=== PATIENT | female | born 1975 | race Caucasian/White ===

== ENCOUNTER 2024-12-08 15:54 | Emergency (ER) | payer SELFPAY ==
[2024-12-08 16:08] VITALS: BP 132/86
--- NOTE | 2024-12-08 16:11 | ED.GENMED ---
ED Provider Triage
<Erasmo Whiteside PA-C - Last Filed: 12/08/24 16:12>
-
Patient seen by provider in Triage?: Seen in Triage
Attestation: A medical screening examination has been initiated by a qualified medical provider. Based on the assessment performed at this time, it has been determined that an emergent medical condition may exist and the patient has been informed
that further medical evaluation and possible additional diagnostic testing may be needed.
HPI: 49-year-old otherwise healthy female presents with ongoing headache runny nose fatigue cough for the past 10 days. She also notes a fever at home. There has been some loose stools.
Patient appears well at triage vital signs are stable. Will start workup COVID and flu testing as well as CBC and CMP
GENERAL: Alert , in no apparent distress
EYE: No visual abnormalities.
NECK: Trachea midline
ENT: No visible abnormalities.
LUNGS: No acute respiratory distress
NEUROLOGICAL: Alert and oriented
SKIN: Skin intact. No visible changes.
MUSCULOSKELETAL: Moving extremities normally
PSYCH: Normal and appropriate interaction.
This is a medical evaluation conducted in person to initiate diagnostic evaluation and provide initial therapeutics. Please see further documentation by the treating clinician.
History of Present Illness
<Erasmo Whiteside PA-C - Last Filed: 12/08/24 16:12>
General
Chief Complaint: Headache
Time Seen by Provider: 12/08/24 20:29
<Saleem Seo MD - Last Filed: 12/09/24 03:00>
General
Source: patient
Exam Limitations: none
Nursing documentation reviewed up to this point in time: agreed with
History of Present Illness
History of Present Illness:
Patient presents to ED secondary to 5-day history of intermittent fever associated with diarrhea, intermittent cough, and head in addition, patient ache. Denies blurred vision. Denies dizziness. Denies nausea or vomiting. Denies rash. Denies
neck pain. Denies sick contact. Denies recent travel. Patient has been taking ibuprofen with improvement in symptoms. In addition, patient who has had recent nasal septum surgery in [place] 2 months ago, report noting cyst inside her nose, with
mild pain. Denies drainage. Denies nasal congestion.
Review of Systems
<Saleem Seo MD - Last Filed: 12/09/24 03:00>
Review of Systems
Allergies reviewed?: Yes
All Other Systems: ROS reviewed and negative except as documented in HPI and ROS
Constitutional: Reports fever
EENT: Reports no symptoms
Respiratory: Reports no symptoms
Cardiac: Reports no symptoms
ABD/GI: Reports diarrhea
: Reports no symptoms
Musculoskeletal: Reports no symptoms
Skin: Reports no symptoms
Neurological: Reports headache; Denies dizzy, weakness or numbness
Phy Exam
<Saleem Seo MD - Last Filed: 12/09/24 03:00>
Physical Exam
Physical Exam:
Physical Exam
General: no apparent distress, not acutely ill. afebrile
Head: nc/at. eomi
Neck: supple. no meningeal signs. normal posterior pharynx
Heart: s1/s2 regular rate and rhythm, no murmur. equal radial pulses.
Lungs: no acute respiratory distress. clear bilaterally
Abdomen: normal bowel sounds. not tender.
Neuro: alert and oriented x 3. no focal neurological deficits
Skin: no rash
Psychiatric: well kept. interactive and cooperative
Extremities: no edema. no calf tenderness.
Course
<Erasmo Whiteside PA-C - Last Filed: 12/08/24 16:12>
Orders/Labs/Results
Orders:
Orders
12/08/24 16:16
COVID-19 Antigen Urgent
Source: Nasal Swab
Complete Blood Count/With Diff Urgent
Comprehensive Metabolic Panel Urgent
Influenza A+B Rapid Molecular Urgent
MARLY Source: Nasal Swab
Specimen Description:
12/08/24 21:40
Ibuprofen [Motrin] 400 mg PO NOW STA
12/09/24 00:45
CT Head W/o Iv Contrast Urgent
Reason For Exam: headache
Abnormal Lab Results
12/08/24
16:16
RBC 4.03 L 10^6/uL
(4.20-5.40)
MCH 31.5 H pg
(27.0-31.0)
12/08/24 16:16
12/08/24 16:16
Vital Signs
Initial and Last Documented VS:
Initial Vital Signs
Temp Pulse Resp BP Pulse Ox
98.2 F 67 16 132/86 98
12/08/24 16:08 12/08/24 16:08 12/08/24 16:08 12/08/24 16:08 12/08/24 16:08
Last Documented Vital Signs
Temp Pulse Resp BP Pulse Ox
98.2 F 67 16 132/86 98
12/08/24 16:08 12/08/24 16:08 12/08/24 16:08 12/08/24 16:08 12/08/24 16:08
<Saleem Seo MD - Last Filed: 12/09/24 03:00>
Orders/Labs/Results
Orders:
Orders
12/08/24 16:16
COVID-19 Antigen Urgent
Source: Nasal Swab
Complete Blood Count/With Diff Urgent
Comprehensive Metabolic Panel Urgent
Influenza A+B Rapid Molecular Urgent
MARLY Source: Nasal Swab
Specimen Description:
12/08/24 21:40
Ibuprofen [Motrin] 400 mg PO NOW STA
12/09/24 00:45
CT Head W/o Iv Contrast Urgent
Reason For Exam: headache
Abnormal Lab Results
12/08/24
16:16
RBC 4.03 L 10^6/uL
(4.20-5.40)
MCH 31.5 H pg
(27.0-31.0)
12/08/24 16:16
12/08/24 16:16
Vital Signs
Initial and Last Documented VS:
Initial Vital Signs
Temp Pulse Resp BP Pulse Ox
98.2 F 67 16 132/86 98
12/08/24 16:08 12/08/24 16:08 12/08/24 16:08 12/08/24 16:08 12/08/24 16:08
Last Documented Vital Signs
Temp Pulse Resp BP Pulse Ox
98.2 F 67 16 132/86 98
12/08/24 16:08 12/08/24 16:08 12/08/24 16:08 12/08/24 16:08 12/08/24 16:08
<Saleem Seo MD - Last Filed: 12/09/24 03:00>
MDM/Problems Addressed
MDM/Problems Addressed:
CT head: NAD.
Pt patient otherwise remains afebrile, hemodynamically stable, and neurologically intact. Patient would likely viral illness, triggering her symptoms. Advised Tylenol/Motrin for symptomatic control, along with continued hydration and PCP follow-up
as an outpatient.
<Saleem Seo MD - Last Filed: 12/09/24 03:00>
*Critical Care Note
Total Time (30-74mins, 75-104mins- exclusive of procedures): Not Applicable
ED Attending Note
<Erasmo Whiteside PA-C - Last Filed: 12/08/24 16:12>
-
Portions of this chart may have been created with voice recognition software.� Occasional wrong word or��sound alike� substitutions may have occurred due to the inherent limitations of voice recognition software.
Discharge Plan
Departure
Patient Disposition: Home (Routine Discharge)
Date of Disposition: 12/09/24
Time of Disposition: 01:32
Patient with high blood pressure during this ER visit?: Yes
Discharge Problem:
Viral syndrome
Instructions: Headache, Adult (DC)
Referrals:
NONE,* [Family Provider] -
Activity Restrictions/Additional Instructions:
As discussed, please follow-up with your primary care physician with any further concerns.
Interventions
Interventions:
*Risk Screen - Suicide Last Done: 12/08/24 16:08
*General Assessment Last Done: 12/08/24 16:08
*Neglect/Abuse Screening Last Done: 12/08/24 16:08
*ED COVID-19 Vaccine History Last Done: 12/08/24 16:08
*Nursing Disposition Last Done: 12/09/24 01:37
ED- Neurological Assessment Last Done: 12/08/24 20:04
Discharge Date and Time
Discharge Date/Time: 12/09/24 01:38
Print Language: MICRONESIAN
[2024-12-08 16:37] LABS: % Basophils 0.8 % (0-2); % Eosinophils 3.9 % (0-6); % Immature Granulocytes 0.4 % (0-0.5); % Lymphocytes 39.7 % (20.5-51.1); % Monocytes 5.4 % (1.7-9.3); % Neutrophils 49.8 % (42.2-75.2); Absolute Eosinophils 0.2 10^3/uL (0-0.7); Absolute Lymphocytes 1.9 10^3/uL (1.2-3.4); Absolute Monocytes 0.3 10^3/uL (0.1-0.6); Absolute Neutrophils 2.4 10^3/uL (1.4-6.5); Hematocrit 38.2 % (37.0-47.0); Hemoglobin 12.7 g/dL (12.0-16.0); Mean Corp Hgb Conc. 33.2 g/dL (33.0-37.0); Mean Corpuscular Hgb 31.5 pg (27.0-31.0); Mean Corpuscular Volume 94.8 fL (81.0-99.0); Mean Platelet Volume 9.9 fL (7.4-10.4); Nucleated Red Blood Cells % 0 %; Platelet Count 245 10^3/uL (130-400); Red Blood Cell Count 4.03 10^6/uL (4.20-5.40); Red Cell Dist. Width 12.7 % (11.5-14.5); White Blood Cell Count 4.8 10^3/uL (4.8-10.8)
[2024-12-08 16:50] LABS: ALT (SGPT) 16 U/L (0-35); AST (SGOT) 26 U/L (14-36); Albumin 4.7 g/dl (3.5-5.0); Alkaline Phosphatase 47 U/L (38-126); Blood Urea Nitrogen 15 mg/dl (7-17); Calcium 9.3 mg/dl (8.4-10.2); Carbon Dioxide 28 mmol/L (22-30); Chloride 101 mmol/L (98-107); Glucose 92 mg/dl (70-99); Potassium 4.2 mmol/L (3.5-5.1); Sodium 138 mmol/L (135-145); Total Bilirubin 0.6 mg/dl (0.2-1.3); Total Protein 7.6 g/dl (6.3-8.2); eGFR > 60.00
[2024-12-08 18:56] LABS: COVID-19 Antigen Negative (Negative)
[2024-12-08] MEDS: MOTRIN 400 MG PO (21:47)
== END 2024-12-09 01:38 | disposition home or self-care (01) ==
LOC: EMR 15:54
PROVIDERS: Physician Assistant; EMERGENCY PHYSICIAN Emergency Medicine
DX: B34.9 Viral infection, unspecified (principal)
CPT/HCPCS: 99284; 70450; 80053; 85025; 87502; 87811

== ENCOUNTER → 2025-01-14 12:55 | Outpatient (REF) | payer OTHER, SELFPAY | LOC: HWRAD 12:55 | PROVIDERS: ATTENDING PHYSICIAN Obstetrics & Gynecology; FAMILY PHYSICIAN Family Medicine | DX: R10.2 Pelvic and perineal pain (principal) | CPT/HCPCS: 76830; 76856 ==

== ENCOUNTER 2025-05-26 06:22 | Day surgery (SDC) | payer OTHER, SELFPAY ==
[2025-05-20 09:41] VITALS: BMI 25.9
[2025-05-20 10:58] LABS: Hematocrit 38.5 % (37.0-47.0); Hemoglobin 12.2 g/dL (12.0-16.0); Mean Corp Hgb Conc. 31.7 g/dL (33.0-37.0); Mean Corpuscular Volume 92.3 fL (81.0-99.0); Nucleated Red Blood Cells % 0 %; Platelet Count 241 10^3/uL (130-400); Red Cell Dist. Width 14.4 % (11.5-14.5)
[2025-05-20 12:37] LABS: Beta HCG Quantitative < 2.39 mIU/ml
[2025-05-20 13:08] LABS: Blood Urea Nitrogen 18 mg/dl (7-17); Calcium 10.0 mg/dl (8.4-10.2); Carbon Dioxide 26 mmol/L (22-30); Chloride 108 mmol/L (98-107); Estimated Creatinine Clearance 98 ml/min; Glucose 88 mg/dl (70-99); Potassium 4.7 mmol/L (3.5-5.1); Sodium 137 mmol/L (135-145); eGFR > 60.00
[2025-05-26] VITALS (11 sets, daily range): BP systolic 118–141; BP diastolic 75–96; BMI 25.9
[2025-05-26] MEDS: NORMOSOL-R/PLASMALYTE-A 1000 IV (08:08)
[2025-05-26] MEDS: SUBLIMAZE 25 MCG IV (09:51)
== END 2025-05-26 12:00 | disposition home or self-care (01) ==
LOC: SDS 06:22
PROVIDERS: ATTENDING PHYSICIAN Obstetrics & Gynecology; FAMILY PHYSICIAN Family Medicine
DX: N92.0 Excessive and frequent menstruation with regular cycle (principal); D25.9 Leiomyoma of uterus, unspecified; N84.1 Polyp of cervix uteri; Z86.018 Personal history of other benign neoplasm
CPT/HCPCS: 58558; 36415; 80048; 84702; 85025; 86850; 86900; 86901; 88305

== ENCOUNTER 2025-06-09 06:16 | Day surgery (SDC) | payer OTHER, SELFPAY | END 2025-06-09 13:46 | disposition home or self-care (01) | LOC: GI 06:16 | PROVIDERS: ATTENDING PHYSICIAN Surgery; FAMILY PHYSICIAN Family Medicine | DX: Z12.11 Encounter for screening for malignant neoplasm of colon (principal); K57.30 Diverticulosis of large intestine without perforation or abscess without bleeding; K64.8 Other hemorrhoids | CPT/HCPCS: G0121 ==